=== PATIENT | male | born 1980 ===

== ENCOUNTER 2019-08-20 06:38 | Day surgery (SDC) | payer OTHER ==
[2019-08-20] MEDS ORDERED: NEURONTIN600 M1 PO (11:21)
[2019-08-20] MEDS ORDERED: PERCOCET 5-3251 EACH PO (11:21)
[2019-08-20] MEDS ORDERED: COLACE100 MG PO (11:22)
== END 2019-08-20 14:10 | disposition home or self-care (01) ==
LOC: CIR.AMB 06:38 → ADM 11:30 → CIR.AMB 11:30
PROVIDERS: ATTEND Surgery
DX: K40.90 Unilateral inguinal hernia, without obstruction or gangrene, not specified as recurrent (principal)